=== PATIENT | male | born 1995 | race Caucasian/White ===

== ENCOUNTER 2019-09-06 18:51 | Emergency (ER) | payer OTHER ==
[~2019-09-06] VITALS: Ht 175.3 cm; Wt 81.8 kg
[2019-09-06 18:57] VITALS: BP 122/50
== END 2019-09-06 21:10 | disposition left against medical advice (07) ==
LOC: EMS 18:53
DX: M79.645 Pain in left finger(s) (principal); Z53.21 Procedure and treatment not carried out due to patient leaving prior to being seen by health care provider